=== PATIENT | female | born 1950 | race Hispanic/Latino ===

== ENCOUNTER 2020-06-29 12:04 | Emergency (ER) | payer MEDICARE ==
[2020-06-29 12:45] VITALS: BP 128/74
--- NOTE | 2020-06-29 13:55 | XRay Report ---
XR hand 3+V LT INDICATION / CLINICAL INFORMATION: pain s/p fall. COMPARISON: None available. FINDINGS/IMPRESSION: * There is a nondisplaced oblique fracture through the proximal diaphysis of the first phalanx. The distal phalanx is angled medially. * Osteoarthritic changes are seen most pronounced in the CMC joint. Signer Name: Tay Matthew MD Signed: 06/29/2020 1:50 PM Workstation Name: [id number]
--- NOTE | 2020-06-29 14:15 | Cat Scan Report ---
CT CERVICAL SPINE: 06/29/2020 INDICATION / CLINICAL INFORMATION: Trauma. COMPARISON: None available. FINDINGS: CT images of the cervical spine were obtained. Images are evaluated in the axial, coronal, and sagitt al planes. There is no evidence of acute osseous injury. Reversal of cervical lordosis is centered in the lower cervical spine. Multilevel degenerative facet changes are present. Degenerative anterolisthesis is noted at the C4-5 and C5-6 level. CRANIOCERVICAL JUNCTION: Unremarkable. PARASPINAL STRUCTURES: Unremarkable IMPRESSION: No acute abnormality. All CT scans at this location are performed using dose reduction to ALARA by means of automated expos ure control. Signer Name: Case Mcmanus MD Signed: 06/29/2020 2:11 PM Workstation Name: [email or web address]
--- NOTE | 2020-06-29 14:17 | Cat Scan Report ---
CT BRAIN: 06/29/2020 INDICATION / CLINICAL INFORMATION: Trauma. COMPARISON: None available. FINDINGS: BRAIN/INTRACRANIAL STRUCTURES: Unenhanced CT images of the brain demonstrate no evidence of acute int racranial abnormality. Ventricles and sulci are prominent in size, consistent with age-related atroph ic change. There is no evidence of acute ischemic injury, hemorrhage, or mass. There are no abnormal extra-axial fluid collections. EXTRACRANIAL STRUCTURES: Unremarkable. IMPRESSION: No acute abnormality. All CT scans at this location are performed using dose reduction to ALARA by means of automated expos ure control. Signer Name: Case Mcmanus MD Signed: 06/29/2020 2:12 PM Workstation Name: [id number]
--- NOTE | 2020-06-29 14:20 | Cat Scan Report ---
Facial CT 06/29/2020 HISTORY: Trauma FINDINGS: CT images of the facial bones were obtained. Images are evaluated in the axial, coronal, an d sagittal plane. There is no definite evidence of acute osseous abnormality. Right periorbital and lateral facial soft tissue swelling is present. Paranasal sinuses are clear. Intraorbital structures are unremarkable. IMPRESSION: No evidence of acute osseous abnormality. All CT scans at this location are performed using dose reduction to ALARA by means of automated expos ure control. Signer Name: Case Mcmanus MD Signed: 06/29/2020 2:15 PM Workstation Name: [id number]
--- NOTE | 2020-06-29 15:15 | Emergency Department Report ---
ED Fall HPI - General Chief Complaint: Fall Stated Complaint: FALL; LT HAND SWELLING Time Seen by Provider: 06/29/20 13:16 Source: patient Mode of arrival: Ambulatory - History of Present Illness Initial Comments: This is a 70-year-old female nontoxic, well nourished in appearance, no acute signs of distress presents to the ED with c/o of right facial abrasion and left hand/wrist pain s/p fall that occurred several days ago. Patient stated that she had a fall whiile getting out of the truck, patient denies any loss of consciousness. Patient denies any headache. Patient denies any other trauma. Patient denies any numbness, tingling, fever, chills, nausea, vomiting, chest pain, shortness of breath, headache, stiff neck. Patient denies any joint swelling or joint redness. Patient denies decreased range of motion. Patient denies abnormal gait. Patient denies any allergies. MD Complaint: fall -: days(s) Loss of Consciousness: none Prolonged Down Time?: no Symptoms Prior to Fall: none Location: face Location - Extremities: Left: Hand Severity: mild Severity scale (0 -10): 8 Quality: aching Context: tripped/slipped Associated Symptoms: denies. denies: headache, neck pain, numbness, weakness, chest paint, shortness of breath, abdominal pain, hematuria, unable to walk, lightheaded, vertigo, confusion - Related Data Home Medications Medication Instructions Recorded Confirmed Last Taken B Complex with Vitamin C [Vitamin 1 each PO DAILY 09/15/15 09/15/15 09/14/15 B-Complex with Vit C] Cholecalciferol (Vitamin D3) 5,000 unit PO DAILY 09/15/15 09/15/15 09/14/15 [Vitamin D] Lisinopril/Hydrochlorothiazide 1 dose PO DAILY 09/15/15 09/15/15 09/14/15 [Lisinopril-Hctz 20-12.5 mg Tab] Mometasone Furoate [Nasonex] 1 dose INHALATION DAILY 09/15/15 09/15/15 Unknown Sertraline HCl 100 mg PO DAILY 09/15/15 09/15/15 09/14/15 Simvastatin 40 mg PO DAILY 09/15/15 09/15/15 09/14/15 Vitamin E Acetate [Vitamin E] 600 unit PO DAILY 09/15/15 09/15/15 09/14/15 Previous Rx's Medication Instructions Recorded Last Taken Type Naproxen 500 mg PO Q12H PRN #12 tablet 06/29/20 Unknown Rx Allergies Allergy/AdvReac Type Severity Reaction Status Date / Time No Known Allergies Allergy Verified 05/24/14 13:29 ED Review of Systems ROS: Stated complaint: FALL; LT HAND SWELLING Other details as noted in HPI Comment: All other systems reviewed and negative Constitutional: denies: chills, fever Eyes: denies: eye pain, eye discharge, vision change ENT: denies: ear pain, throat pain Respiratory: denies: cough, shortness of breath, wheezing Cardiovascular: denies: chest pain, palpitations Endocrine: no symptoms reported Gastrointestinal: denies: abdominal pain, nausea, diarrhea Genitourinary: denies: urgency, dysuria, discharge Musculoskeletal: denies: back pain, joint swelling, arthralgia Skin: denies: rash, lesions Neurological: denies: headache, weakness, paresthesias Psychiatric: denies: anxiety, depression Hematological/Lymphatic: denies: easy bleeding, easy bruising ED Past Medical Hx - Past Medical History Previous Medical History?: Yes Hx Hypertension: Yes Hx Arthritis: Yes Additional medical history: High Cholesterol. Heart murmur - Surgical History Past Surgical History?: Yes Additional Surgical History: Tubal Ligation. Knee Surgery - Social History Smoking Status: Former Smoker - Medications Home Medications: Home Medications Medication Instructions Recorded Confirmed Last Taken Type B Complex with Vitamin C [Vitamin 1 each PO DAILY 09/15/15 09/15/15 09/14/15 History B-Complex with Vit C] Cholecalciferol (Vitamin D3) 5,000 unit PO DAILY 09/15/15 09/15/15 09/14/15 History [Vitamin D] Lisinopril/Hydrochlorothiazide 1 dose PO DAILY 09/15/15 09/15/15 09/14/15 History [Lisinopril-Hctz 20-12.5 mg Tab] Mometasone Furoate [Nasonex] 1 dose INHALATION DAILY 09/15/15 09/15/15 Unknown History Sertraline HCl 100 mg PO DAILY 09/15/15 09/15/15 09/14/15 History Simvastatin 40 mg PO DAILY 09/15/15 09/15/15 09/14/15 History Vitamin E Acetate [Vitamin E] 600 unit PO DAILY 09/15/15 09/15/15 09/14/15 His tory Naproxen 500 mg PO Q12H PRN #12 tablet 06/29/20 Unknown Rx ED Physical Exam - General Limitations: No Limitations General appearance: alert, in no apparent distress - Head Head exam: Present: normocephalic - Expanded Head Exam Expanded Head exam: Present: abrasion, contusion, general tenderness 1 - Ecchymosis with abrasions 2 - Abrasion and ecchymosis - Eye Eye exam: Present: normal appearance, PERRL, EOMI - Neck Neck exam: Present: normal inspection, full ROM - Respiratory Respiratory exam: Present: normal lung sounds bilaterally. Absent: respiratory distress, wheezes, rales, rhonchi, stridor, chest wall tenderness, accessory muscle use, decreased breath sounds, prolonged expiratory - Cardiovascular Cardiovascular Exam: Present: regular rate, normal rhythm, normal heart sounds. Absent: irregular rhythm, systolic murmur, diastolic murmur, rubs, gallop - GI/Abdominal GI/Abdominal exam: Present: soft. Absent: distended, tenderness - Extremities Exam Extremities exam: Present: full ROM, tenderness, normal capillary refill. Absent: joint swelling - Expanded Upper Extremity Exam Left General: Present: normal inspection Shoulder Exam: Present: normal inspection, full ROM. Absent: tenderness, swelling Upper Arm exam: Present: normal inspection, full ROM. Absent: tenderness, swelling Elbow exam: Present: normal inspection, full ROM. Absent: tenderness, swelling, abrasion, laceration, ecchymosis, deformity, crepidus, dislocation, erythema, effusion, pain w/ pronation/supination, tenderness over radial head Forearm Wrist exam: Present: full ROM, tenderness, swelling. Absent: abrasion, laceration, ecchymosis, deformity, crepidus, dislocation, erythema, tenderness over anatomical snuff box, pain with axial thumb loading Hand Wrist exam: Present: full ROM, tenderness, swelling, abrasion, ecchymosis. Absent: laceration, deformity, crepidus, dislocation, erythema, amputation, nail avulsion, subungual hematoma Vascular: Present: normal capillary refill. Absent: vascular compromise (Neurovascular within normal limits) - Back Exam Back exam: Present: normal inspection, full ROM. Absent: tenderness, CVA tenderness (R), CVA tenderness (L), muscle spasm, paraspinal tenderness, vertebral tenderness, rash noted - Neurological Exam Neurological exam: Present: alert, oriented X3, normal gait - Psychiatric Psychiatric exam: Present: normal affect, normal mood - Skin Skin exam: Present: warm, dry, intact, normal color. Absent: rash ED Course Vital Signs 06/29/20 12:45 Temperature 98.5 F Pulse Rate 96 H Respiratory 16 Rate Blood Pressure 128/74 [Right] O2 Sat by Pulse 98 Oximetry - Reevaluation(s) Reevaluation #1: 06/29/20 15:28 Patient is speaking in full sentences with no signs of distress noted. ED Medical Decision Making - Radiology Data Referring Physician: TRACI PAN Patient Name: CARYN MICHAUD Date of : 1950 Sex: Female Report Date: 2020-06-29 Report Status: [place] [address] Cat Scan Report Signed Patient: CARYN MICHAUD MR#: [id number] : 1950 Acct:[id number] Age/Sex: 70 / F ADM Date: 06/29/20 Loc: ED Attending Dr: Ordering Physician: TRACI PAN NP Date of Service: 06/29/20 Procedure(s): CT head/brain wo [facility] Accession Number(s): [id number] cc: TRACI PAN NP CT BRAIN: 06/29/2020 INDICATION / CLINICAL INFORMATION: Trauma. COMPARISON: None available. FINDINGS: BRAIN/INTRACRANIAL STRUCTURES: Unenhanced CT images of the brain demonstrate no evidence of acute intracranial abnormality. Ventricles and sulci are prominent in size, consistent with age- related atrophic change. There is no evidence of acute ischemic injury, hemorrhage, or mass. There are no abnormal extra-axial fluid collections. EXTRACRANIAL STRUCTURES: Unremarkable. IMPRESSION: No acute abnormality. All CT scans at this location are performed using dose reduction to ALARA by means of automated exposure control. Signer Name: Case Mcmanus MD Signed: 06/29/2020 2:12 PM Workstation Name: [id number] Transcribed By: ROJELIO Dictated By: Case Mcmanus MD Electronically Authenticated By: Case Mcmanus MD Signed Date/Time: 06/29/20 1412 DD/ 1411 TD/TT: Referring Physician: TRACI PAN Patient Name: CARYN MICHAUD Date of : 1950 Sex: Female Report Date: 2020-06-29 Report Status: Finalized [facility] [address] [place] [address] Cat Scan Report Signed Patient: CARYN MICHAUD MR#: [id number] : 1950 Acct:[id number] Age/Sex: 70 / F ADM Date: 06/29/20 Loc: ED Attending Dr: Ordering Physician: TRACI PNA NP Date of Service: 06/29/20 Procedure(s): CT cervical spine wo con Accession Number(s): [id number] cc: TRACI PAN NP CT CERVICAL SPINE: 06/29/2020 INDICATION / CLINICAL INFORMATION: Trauma. COMPARISON: None available. FINDINGS: CT images of the cervical spine were obtained. Images are evaluated in the axial, coronal, and sagittal planes. There is no evidence of acute osseous injury. Reversal of cervical lordosis is centered in the lower cervical spine. Multilevel degenerative facet changes are present. Degenerative anterolisthesis is noted at the C4-5 and C5-6 level. CRANIOCERVICAL JUNCTION: Unremarkable. PARASPINAL STRUCTURES: Unremarkable IMPRESSION: No acute abnormality. All CT scans at this location are performed using dose reduction to ALARA by means of automated exposure control. Signer Name: Case Mcmanus MD Signed: 06/29/2020 2:11 PM Workstation Name: [id number] Transcribed By: ROJELIO Dictated By: Case Mcmanus MD Electronically Authenticated By: Case Mcmanus MD Signed Date/Time: 06/29/20 141 DD/ 1409 TD/TT: Referring Physician: TRACI PAN Patient Name: CARYN MICHAUD Date of : 1950 Sex: Female Report Date: 2020-06-29 Report Status: Finalized [address] [address] XRay Report Signed Patient: CARYN MICHAUD MR#: [id number] : 1950 Acct:[id number] Age/Sex: 70 / F ADM Date: 06/29/20 Loc: ED Attend ing Dr: Ordering Physician: TRACI PAN NP Date of Service: 06/29/20 Procedure(s): XR hand 3+V LT Accession Number(s): [id number] cc: TRACI PAN NP Fluoro Time In Minutes: XR hand 3+V LT INDICATION / CLINICAL INFORMATION: pain s/p fall. COMPARISON: None available. FINDINGS/IMPRESSION: * There is a nondisplaced oblique fracture through the proximal diaphysis of the first phalanx. The distal phalanx is angled medially. * Osteoarthritic changes are seen most pronounced in the CMC joint. Signer Name: Tay Matthew MD Signed: 06/29/2020 1:50 PM Workstation Name: [email or web address] [id number] Transcribed By: CS Dictated By: Tay Matthew MD Electronically Authenticated By: Tay Matthew MD Signed Date/Time: 06/29/20 1350 DD/ 1348 TD/TT: Referring Physician: TRACI PAN Patient Name: CARYN MICHAUD Date of : 1950 Sex: Female Report Date: 2020-06-29 Report Status: Finalized [address] [address] Cat Scan Report Signed Patient: CARYN MICHAUD MR#: [id number] : 1950 Acct:[id number] Age/Sex: 70 / F ADM Date: 06/29/20 Loc: ED Attending Dr: Ordering Physician: TRACI PAN NP Date of Service: 06/29/20 Procedure(s): CT facial bones wo con Accession Number(s): [id number] cc: TRACI PANJOSE Facial CT 06/29/2020 HISTORY: Trauma FINDINGS: CT images of the facial bones were obtained. Images are evaluated in the axial, coronal, and sagittal plane. There is no definite evidence of acute osseous abnormality. Right periorbital and lateral facial soft tissue swelling is present. Paranasal sinuses are clear. Intraorbital structures are unremarkable. IMPRESSION: No evidence of acute osseous abnormality. All CT scans at this location are performed using dose reduction to ALARA by means of automated exposure control. Signer Name: Case Mcmanus MD Signed: 06/29/2020 2:15 PM Workstation Name: [id number] Transcribed By: ROJELIO Dictated By: Csae Mcmanus MD Electronically Authenticated By: Case Mcmanus MD Signed Date/Time: 06/29/201414 DD/ 12 TD/TT: - Medical Decision Making This is a 70-year-old female that presents with left thumb fracture and facial contusion status post fall. Patient is stable and was examined by me. I referred patient to an orthopedic doctor for further evaluation for possible MRI. X-ray has been obtained and dictated by the radiologist. Patient is notified of the x-ray report with noted by the patient. Patient does have normal range of motion with no tenderness and no joint swelling. No ecchymosis. no joint redness or swelling. Not warm to touch. No signs of cellulites present. Patient received a metal frog splint to left thumb. Post splint assessment: neurovasular intact; normal cap refill <2 second; normal sensation; denies decreaed sensation; normal ROM of digits. Patient was instructed to RICE therapy. Patient is discharged with naproxen. At time of discharge, the patient does not seem toxic or ill in appearance. No acute signs of distress noted. Patient agrees to discharge treatment plan of care. No further questions noted by the patient. Critical care attestation.: If time is entered above; I have spent that time in minutes in the direct care of this critically ill patient, excluding procedure time. ED Disposition Clinical Impression: Abrasion, multiple sites Fall Qualifiers: Encounter type: initial encounter Qualified Code(s): W19.XXXA - Unspecified fall, initial encounter Facial contusion Qualifiers: Encounter type: initial encounter Qualified Code(s): S00.83XA - Contusion of other part of head, initial encounter Fracture of thumb, right, closed Qualifiers: Encounter type: initial encounter Phalanx: proximal Fracture alignment: nondisplaced Qualified Code(s): S62.514A - Nondisplaced fracture of proximal phalanx of right thumb, initial encounter for closed fracture Disposition: TO HOME OR SELFCARE Is pt being admited?: No Does the pt Need Aspirin: No Condition: Stable Instructions: RICE Therapy for Routine Care of Injuries, Bgak-gf-[id number], Finger Fracture, Adult, [id number] Additional Instructions: Follow-up with a orthopedic doctor in 3-5 days or if symptoms worsen and continue return to emergency room as soon as possible. Prescriptions: Naproxen 500 mg PO Q12H PRN #12 tablet PRN Reason: Pain , Severe (7-10) Referrals: PRIMARY CARE, [Primary Care Provider] - 3-5 Days YAMEL GEORGE MD [Staff Physician] - 3-5 Days Time of Disposition: 15:35
== END 2020-06-29 15:44 | disposition home or self-care (01) ==
LOC: ED 12:04
DX: S62.514A Nondisplaced fracture of proximal phalanx of right thumb, initial encounter for closed fracture (principal); S00.83XA Contusion of other part of head, initial encounter; T07.XXXA Unspecified multiple injuries, initial encounter; I10 Essential (primary) hypertension; M19.90 Unspecified osteoarthritis, unspecified site; E78.00 Pure hypercholesterolemia, unspecified; Z98.51 Tubal ligation status; Z98.890 Other specified postprocedural states; Z79.899 Other long term (current) drug therapy; Z87.891 Personal history of nicotine dependence; W13.8XXA Fall from, out of or through other building or structure, initial encounter; Y93.89 Activity, other specified; Y92.89 Other specified places as the place of occurrence of the external cause; Y99.8 Other external cause status
CPT/HCPCS: 70450; 70486; 72125

== ENCOUNTER 2020-09-15 09:50 | Emergency (ER) | payer MEDICARE ==
[2020-09-15 10:05] VITALS: BP 157/73
[2020-09-15 11:52] LABS: Bilirubin,Urine NEG (Negative); Blood,Urine NEG (Negative); Color,Urine Yellow (Yellow); Mucus,Urine 2+ /HPF
--- NOTE | 2020-09-15 12:13 | Cat Scan Report ---
CT CHEST WITHOUT CONTRAST INDICATION / CLINICAL INFORMATION: fall, left posterior rib pain. TECHNIQUE: Axial CT images were obtained through the chest without contrast. All CT scans at this location are p erformed using CT dose reduction for ALARA by means of automated exposure control. COMPARISON: None available. FINDINGS: HEART: No significant abnormality. VASCULATURE: The aorta is normal in caliber with severe calcification of the aortic valve and mild ge neralized atherosclerosis elsewhere. There is severe coronary atherosclerosis. No other significant a bnormality. LYMPH NODES: No significant adenopathy. TRACHEA AND BRONCHI:No significant abnormality. LUNGS: There is mild bibasilar atelectasis without other significant abnormalities. PLEURA: No significant pleural effusion. No pneumothorax. UPPER ABDOMEN: No significant abnormality. BONES: Acute mildly displaced fractures of the left 10th and 11th ribs are noted posteriorly. There a re old fractures of the left third and fourth ribs. Mild degenerative changes are seen along the spin e. A chronic appearing compression deformity of T12 is also noted. There are moderate degenerative ch anges of the shoulders. ADDITIONAL FINDINGS: None. IMPRESSION: 1. Acute left 10th and 11th rib fractures. No other acute abnormality of the chest. 2. Additional findings as above. Signer Name: Jarocho Triplett MD Signed: 09/15/2020 11:42 AM Workstation Name: [facility]
--- NOTE | 2020-09-15 12:16 | Cat Scan Report ---
CT LUMBAR SPINE WITHOUT CONTRAST INDICATION: fall, left posterior rib pain, left lower back. TECHNIQUE: Axial imaging performed through the lumbar spine without the use of contrast. Sagittal a nd coronal reconstructed images were also reviewed. All CT scans at this location are performed usin g CT dose reduction for ALARA by means of automated exposure control. COMPARISON: None FINDINGS: Alignment: There is 10 mm anterolisthesis of L5 with respect to the sacrum. There is 5 mm anterolist hesis of L4 with respect to L5. The remaining lumbar vertebra are normal in alignment. Posterior fusi on changes at L3-L5 are noted. There is mild levocurvature of the lumbar spine on the coronal images. Bones: Mild osteopenia is noted. A chronic superior endplate deformity at T12 with 50% loss of heigh t is evident. No acute fracture or bony lesion is detected. Moderate multilevel discogenic DJD and f acet arthropathy is evident. Hypertrophic facet changes are noted at L4-5 and L5-S1. Visualized post erior lower ribs are intact. Soft tissues: No acute or significant incidental soft tissue abnormality. IMPRESSION: No acute injury to the lumbar spine is appreciated on CT. Chronic T12 superior endplate fracture. Anterolisthesis of L4 with respect to L5 and L5 with respect to the sacrum as described. Posterior fusion changes and degenerative changes from L3-L5. Signer Name: Rashard Maxwell Jr, MD Signed: 09/15/2020 11:44 AM Workstation Name: [id number]
--- NOTE | 2020-09-15 12:25 | Emergency Department Report ---
ED Fall HPI - General Chief Complaint: Fall Stated Complaint: BACK PAIN Time Seen by Provider: 09/15/20 10:35 Source: patient Mode of arrival: Ambulatory - History of Present Illness Initial Comments: Patient is a 70-year-old female who presents emergency room with complaints of a fall that occurred 3 days ago. Patient states that she went to lock her front door and accidentally tripped over the rug. She states that she fell onto her left side and lower back. She is complaining of left-sided rib pain and lower back pain. She denies any loss of consciousness, hitting her head, neck pain, numbness, weakness, bowel or bladder incontinence, any other injury. She denies any chest pain, shortness of breath, dizziness prior to her fall. She states that she has a history of a rib fracture last year. She states that she lives at home with her . She has a past medical history of arthritis, back surgery, knee surgery. No allergies to medications. - Related Data Home Medications Medication Instructions Recorded Confirmed Last Taken B Complex with Vitamin C [Vitamin 1 each PO DAILY 09/15/15 09/15/15 09/14/15 B-Complex with Vit C] Cholecalciferol (Vitamin D3) 5,000 unit PO DAILY 09/15/15 09/15/15 09/14/15 [Vitamin D] Lisinopril/Hydrochlorothiazide 1 dose PO DAILY 09/15/15 09/15/15 09/14/15 [Lisinopril-Hctz 20-12.5 mg Tab] Mometasone Furoate [Nasonex] 1 dose INHALATION DAILY 09/15/15 09/15/15 Unknown Sertraline HCl 100 mg PO DAILY 09/15/15 09/15/15 09/14/15 Simvastatin 40 mg PO DAILY 09/15/15 09/15/15 09/14/15 Vitamin E Acetate [Vitamin E] 600 unit PO DAILY 09/15/15 09/15/15 09/14/15 Previous Rx's Medication Instructions Recorded Last Taken Type Naproxen 500 mg PO Q12H PRN #12 tablet 06/29/20 Unknown Rx HYDROcodone/APAP 7.5-325 [[place] 1 each PO Q8HR PRN #14 tablet 09/15/20 Unknown Rx 7.5/325] cephALEXin [Keflex] 500 mg PO BID 7 Days #14 capsule 09/15/20 Unknown Rx Allergies Allergy/AdvReac Type Severity Reaction Status Date / Time No Known Allergies Allergy Verified 05/24/14 13:29 ED Review of Systems ROS: Stated complaint: BACK PAIN Other details as noted in HPI Comment: All other systems reviewed and negative ED Past Medical Hx - Past Medical History Hx Hypertension: Yes Hx Arthritis: Yes Additional medical history: High Cholesterol. Heart murmur - Surgical History Past Surgical History?: Yes Additional Surgical History: Tubal Ligation. Knee Surgery - Social History Smoking Status: Former Smoker - Medications Home Medications: Home Medications Medication Instructions Recorded Confirmed Last Taken Type B Complex with Vitamin C [Vitamin 1 each PO DAILY 09/15/15 09/15/15 09/14/15 History B-Complex with Vit C] Cholecalciferol (Vitamin D3) 5,000 unit PO DAILY 09/15/15 09/15/15 09/14/15 History [Vitamin D] Lisinopril/Hydrochlorothiazide 1 dose PO DAILY 09/15/15 09/15/15 09/14/15 History [Lisinopril-Hctz 20-12.5 mg Tab] Mometasone Furoate [Nasonex] 1 dose INHALATION DAILY 09/15/15 09/15/15 Unknown History Sertraline HCl 100 mg PO DAILY 09/15/15 09/15/15 09/14/15 History Simvastatin 40 mg PO DAILY 09/15/15 09/15/15 09/14/15 History Vitamin E Acetate [Vitamin E] 600 unit PO DAILY 09/15/15 09/15/15 09/14/15 Hist ory Naproxen 500 mg PO Q12H PRN #12 tablet 06/29/20 Unknown Rx HYDROcodone/APAP 7.5-325 [[place] 1 each PO Q8HR PRN #14 tablet 09/15/20 Unknown Rx 7.5/325] cephALEXin [Keflex] 500 mg PO BID 7 Days #14 capsule 09/15/20 Unknown Rx ED Physical Exam - General Limitations: No Limitations General appearance: alert, in no apparent distress - Head Head exam: Present: atraumatic, normocephalic - Eye Eye exam: Present: normal appearance, PERRL, EOMI. Absent: conjunctival injection, periorbital swelling, periorbital tenderness Pupils: Present: normal accommodation - ENT ENT exam: Present: mucous membranes moist - Neck Neck exam: Present: normal inspection, full ROM. Absent: tenderness - Respiratory Respiratory exam: Present: normal lung sounds bilaterally, chest wall tenderness (left posterior rib ttp, no flail chest, no ecchymosis, no crepitus, no deformity). Absent: respiratory distress, wheezes, rales, rhonchi, stridor, accessory muscle use, decreased breath sounds, prolonged expiratory - Cardiovascular Cardiovascular Exam: Present: regular rate, normal rhythm, normal heart sounds. Absent: systolic murmur, diastolic murmur, rubs, gallop - Back Exam Back exam: Present: full ROM, paraspinal tenderness (left sided lumbar paraspinal ttp, no midline C-spine, T-spine or L-spine ttp, prior surgical incision overlying the lumbar spine). Absent: vertebral tenderness - Neurological Exam Neurological exam: Present: alert, oriented X3 - Psychiatric Psychiatric exam: Present: normal affect, normal mood - Skin Skin exam: Present: warm, dry, intact ED Course Vital Signs 09/15/20 10:01 Temperature 98.6 F Pulse Rate 61 Respiratory 18 Rate Blood Pressure 157/73 [Right] O2 Sat by Pulse 97 Oximetry ED Medical Decision Making - Lab Data Result diagrams: 09/15/20 11:56 09/15/20 11:56 Lab Results 09/15/20 09/15/20 09/15/20 Range/Units 11:21 11:56 11:56 WBC 6.8 (4.5-11.0) K/mm3 RBC 3.88 (3.65-5.03) M/mm3 Hgb 12.7 (10.1-14.3) gm/dl Hct 36.8 (30.3-42.9) % MCV 95 (79-97) fl MCH 33 H (28-32) pg MCHC 34 (30-34) % RDW 13.6 (13.2-15.2) % Plt Count 232 (140-440) K/mm3 Lymph % (Auto) 30.0 (13.4-35.0) % [place] % (Auto) 11.2 H (0.0-7.3) % Eos % (Auto) 2.9 (0.0-4.3) % Baso % (Auto) 0.4 (0.0-1.8) % Lymph # (Auto) 2.0 (1.2-5.4) K/mm3 [place] # (Auto) 0.8 (0.0-0.8) K/mm3 Eos # (Auto) 0.2 (0.0-0.4) K/mm3 Baso # (Auto) 0.0 (0.0-0.1) K/mm3 Seg Neutrophils % 55.5 (40.0-70.0) % Seg Neutrophils # 3.8 (1.8-7.7) K/mm3 Sodium 137 (137-145) mmol/L Potassium 4.1 (3.6-5.0) mmol/L Chloride 99.1 (98-107) mmol/L Carbon Dioxide 25 (22-30) mmol/L Anion Gap 17 mmol/L BUN 16 (7-17) mg/dL Creatinine 1.0 (0.6-1.2) mg/dL Estimated GFR 55 ml/min BUN/Creatinine Ratio 16 % Glucose 108 H (65-100) mg/dL Calcium 9.5 (8.4-10.2) mg/dL Magnesium 1.80 (1.7-2.3) mg/dL Total Bilirubin 1.20 (0.1-1.2) mg/dL AST 12 (5-40) units/L ALT 5 L (7-56) units/L Alkaline Phosphatase 76 (35-129) units/L Total Creatine Kinase 142 H (30-135) units/L Total Protein 7.7 (6.3-8.2) g/dL Albumin 4.0 (3.9-5) g/dL Albumin/Globulin Ratio 1.1 % Urine Color Yellow (Yellow) Urine Turbidity Slightly-cloudy (Clear) Urine pH 5.0 (5.0-7.0) Ur Specific [place] 1.029 (1.003-1.030) Urine Protein 30 mg/dl (Negative) mg/dL Urine Glucose (UA) Neg (Negative) mg/dL Urine Ketones Neg (Negative) mg/dL Urine Blood Neg (Negative) Urine Nitrite Neg (Negative) Urine Bilirubin Neg (Negative) Urine Urobilinogen 2.0 (<2.0) mg/dL Ur Leukocyte Esterase Sm (Negative) Urine WBC (Auto) 9.0 H (0.0-6.0) /HPF Urine RBC (Auto) 9.0 (0.0-6.0) /HPF U Epithel Cells (Auto) 16.0 H (0-13.0) /HPF Urine Mucus 2+ /HPF - Radiology Data Radiology results: report reviewed Ordering Physician: JEANETTE ARELLANO Date of Service: 09/15/20 Procedure(s): CT lumbar spine wo con Accession Number(s): [id number] cc: JEANETTE ARELLANO CT LUMBAR SPINE WITHOUT CONTRAST INDICATION: fall, left posterior rib pain, left lower back. TECHNIQUE: Axial imaging performed through the lumbar spine without the use of contrast. Sagittal and coronal reconstructed images were also reviewed. All CT scans at this location are performed using CT dose reduction for ALARA by means of automated exposure control. COMPARISON: None FINDINGS: Alignment: There is 10 mm anterolisthesis of L5 with respect to the sacrum. There is 5 mm anterolisthesis of L4 with respect to L5. The remaining lumbar vertebra are normal in alignment. Posterior fusion changes at L3-L5 are noted. There is mild levocurvature of the lumbar spine on the coronal images. Bones: Mild osteopenia is noted. A chronic superior endplate deformity at T12 with 50% loss of height is evident. No acute fracture or bony lesion is detected. Moderate multi level discogenic DJD and facet arthropathy is evident. Hypertrophic facet changes are noted at L4-5 and L5-S1. Visualized posterior lower ribs are intact. Soft tissues: No acute or significant incidental soft tissue abnormality. IMPRESSION: No acute injury to the lumbar spine is appreciated on CT. Chronic T12 superior endplate fracture. Anterolisthesis of L4 with respect to L5 and L5 with respect to the sacrum as described. Posterior fusion changes and degenerative changes from L3-L5. Signer Name: Rashard Maxwell Jr, MD Signed: 09/15/2020 11:44 AM Workstation Name: [id number] Transcribed By: TTR Dictated By: RASHARD MAXWELL JR, MD Electronically Authenticated By: RASHARD MAXWELL JR, MD Signed Date/Time: 09/15/20 1144 DD/ 1139 TD/TT: Print Ordering Physician: JEANETTE ARELLANO Date of Service: 09/15/20 Procedure(s): CT chest wo con Accession Number(s): [id number] cc: JEANETTE ARELLANO CT CHEST WITHOUT CONTRAST INDICATION / CLINICAL INFORMATION: fall, left posterior rib pain. TECHNIQUE: Axial CT images were obtained through the chest without contrast. All CT scans at this location are performed using CT dose reduction for ALARA by means of automated exposure control. COMPARISON: None available. FINDINGS: HEART: No significant abnormality. VASCULATURE: The aorta is normal in caliber with severe calcification of the aortic valve and mild generalized atherosclerosis elsewhere. There is severe coronary atherosclerosis. No other significant abnormality. LYMPH NODES: No significant adenopathy. TRACHEA AND BRONCHI:No significant abnormality. LUNGS: There is mild bibasilar atelectasis without other significant abnormalities. PLEURA: No significant pleural effusion. No pneumothorax. UPPER ABDOMEN: No significant abnormality. BONES: Acute mildly displaced fractures of the left 10th and 11th ribs are noted posteriorly. There are old fractures of the left third and fourth ribs. Mild degenerative changes are seen along the spine. A chronic appearing compression deformity of T12 is also noted. There are moderate degenerative changes of the shoulders. ADDITIONAL FINDINGS: None. IMPRESSION: 1. Acute left 10th and 11th rib fractures. No other acute abnormality of the chest. 2. Additional findings as above. Signer Name: Jarocho Triplett MD Signed: 09/15/2020 11:42 AM Workstation Name: [id number] Transcribed By: [place] Dictated By: Jarocho Triplett MD Electronically Authenticated By: Jarocho Triplett MD Signed Date/Time: 09/15/20 1142 DD/ 1137 TD/TT: - Medical Decision Making Patient is a 70-year-old female who presents emergency room with complaints of a fall that occurred 3 days ago. Patient states that she went to lock her front door and accidentally tripped over the rug. She states that she fell onto her left side and lower back. She is complaining of left-sided rib pain and lower back pain. She denies any loss of consciousness, hitting her head, neck pain, numbness, weakness, bowel or bladder incontinence, any other injury. She denies any chest pain, shortness of breath, dizziness prior to her fall. She states that she has a history of a rib fracture last year. She states that she lives at home with her . She has a past medical history of arthritis, back surgery, knee surgery. No allergies to medications. Vitals are stable. On exam:left sided lumbar paraspinal ttp, no midline C-spine, T-spine or L-spine ttp, prior surgical incision overlying the lumbar spine, left posterior rib ttp, no flail chest, no ecchymosis, no crepitus, no deformity. Labs are stable. UA shows evidence of mild UTI, could be due to contamination, given patient's age will cover with antibiotics. CT lumbar spine: No acute injury to the lumbar spine is appreciated on CT. Chronic T12 superior endplate fracture. Anterolisthesis of L4 with respect to L5 and L5 with respect to the sacrum as described. Posterior fusion changes and degenerative changes from L3-L5. CT chest: 1. Acute left 10th and 11th rib fractures. No other acute abnormality of the chest. 2. Additional findings as above. Discussed all results with jeanette hahn answered questions. Patient given an incentive spirometer and advised to use every 1-2 hours[address]iscuss[address] case with Dr. Abreu, ER attending who agrees with discharge home and primary care follow-up, advised to give patient prescription for [place]. I also discussed with patient to remove all rugs in the home and things that may cause falls. Advised patient Please take medication as prescribed. Please use incentive spirometer every 1-2 hours. Follow-up with your primary care doctor for reexamination. Return to emergency room for any new or worsening symptoms. Critical care attestation.: If time is entered above; I have spent that time in minutes in the direct care of this critically ill patient, excluding procedure time. ED Disposition Clinical Impression: Fall Qualifiers: Encounter type: initial encounter Qualified Code(s): W19.XXXA - Unspecified fall, initial encounter UTI (urinary tract infection) Qualifiers: Urinary tract infection type: acute cystitis Hematuria presence: without hematuria Qualified Code(s): N30.00 - Acute cystitis without hematuria Rib fractures Qualifiers: Encounter type: initial encounter Fracture type: closed Laterality: left Qualified Code(s): S22.42XA - Multiple fractures of ribs, left side, initial encounter for closed fracture Back pain Qualifiers: Back pain location: low back pain Chronicity: acute Back pain laterality: bilateral Sciatica presence: without sciatica Qualified Code(s): M54.5 - Low back pain Disposition: TO HOME OR SELFCARE Is pt being admited?: No Does the pt Need Aspirin: No Condition: Stable Instructions: Rib Fracture Additional Instructions: Please take medication as prescribed. Please use incentive spirometer every 1-2 hours. Follow-up with your primary care doctor for reexamination. Return to emergency room for any new or worsening symptoms. Prescriptions: cephALEXin [Keflex] 500 mg PO BID 7 Days #14 capsule HYDROcodone/APAP 7.5-325 [[place] 7.5/325] 1 each PO Q8HR PRN #14 tablet PRN Reason: Pain Referrals: PRIMARY CARE, [Primary Care Provider] - 2-3 Days Time of Disposition: 13:27 Print Language: LITHUANIAN
[2020-09-15 12:49] LABS: Basophils % (Auto) 0.4 % (0.0-1.8); Eosinophils # (Auto) 0.2 K/mm3 (0.0-0.4); Eosinophils % (Auto) 2.9 % (0.0-4.3); Hematocrit 36.8 % (30.3-42.9); Hemoglobin 12.7 gm/dl (10.1-14.3); Mean Corpuscular HGB Conc 34 % (30-34); Mean Corpuscular Volume 95 fl (79-97); Monocytes # (Auto) 0.8 K/mm3 (0.0-0.8); Monocytes % (Auto) 11.2 % (0.0-7.3); Platelet Count 232 K/mm3 (140-440); Red Blood Count 3.88 M/mm3 (3.65-5.03); Red Cell Distribution Width 13.6 % (13.2-15.2)
[2020-09-15 13:05] LABS: Calcium 9.5 mg/dL (8.4-10.2)
== END 2020-09-15 13:30 | disposition home or self-care (01) ==
LOC: ED 09:50
DX: S22.42XA Multiple fractures of ribs, left side, initial encounter for closed fracture (principal); N39.0 Urinary tract infection, site not specified; M54.9 Dorsalgia, unspecified; I10 Essential (primary) hypertension; E78.00 Pure hypercholesterolemia, unspecified; M19.90 Unspecified osteoarthritis, unspecified site; Z87.891 Personal history of nicotine dependence; Z79.899 Other long term (current) drug therapy; Z98.890 Other specified postprocedural states; Z98.51 Tubal ligation status; W18.30XA Fall on same level, unspecified, initial encounter; Y93.89 Activity, other specified; Y92.89 Other specified places as the place of occurrence of the external cause; Y99.8 Other external cause status
CPT/HCPCS: 36415; 71250; 72131; 80053; 81001; 82550; 83735; 85025; 87086